=== PATIENT | male | born 1965 | race Caucasian/White ===

== ENCOUNTER → 2023-07-11 06:28 | Day surgery (SDC) | payer OTHER, SELFPAY | LOC: GI 06:28 | PROVIDERS: ATTENDING PHYSICIAN Internal Medicine | DX: Z12.11 Encounter for screening for malignant neoplasm of colon (principal); D12.0 Benign neoplasm of cecum; K63.5 Polyp of colon; K57.30 Diverticulosis of large intestine without perforation or abscess without bleeding; K64.8 Other hemorrhoids; K64.4 Residual hemorrhoidal skin tags; Z86.010 Personal history of colon polyps | CPT/HCPCS: 45385; 45380; 88305 ==

== ENCOUNTER 2023-08-09 07:48 | Emergency (ER) | payer OTHER, SELFPAY ==
[2023-08-09 07:50] VITALS: BP 153/87
--- NOTE | 2023-08-09 08:11 | ED.GENMED ---
History of Present Illness
General
Chief Complaint: Rectal Bleeding
Source: patient and spouse
Exam Limitations: none
Time Seen by Provider: 08/09/23 07:54
Nursing documentation reviewed up to this point in time: agreed with
Travel History
Have you had any contact with someone who has COVID-19?: No
Do you have any symptoms of coronavirus? Fever > 100 degrees, chills, cough, shortness of breath, sore throat, loss of taste or smell, muscle aches, or headache?: No
History of Present Illness
History of Present Illness:
58-year-old male past medical history of diverticulitis and hypertension presenting to the emergency department today with concerns of bright red blood in his stool since last night and an episode this morning as well. Claims he also has had brown
stool. Has had lower abdominal pain over the past week as well. Does have a history of diverticulitis which felt somewhat similar. Denies any nausea vomiting or fevers.
Past History
Past History
ED Past Medical History: None
ED Past Surgical History: None
Social History
Tobacco: Non-smoker
Alcohol: Occasional
Personal:
Living: with family
Employment: Employed (self empoyeed)
Review of Systems
Review of Systems
Allergies reviewed?: Yes
All Other Systems: ROS reviewed and negative except as documented in HPI and ROS
Phy Exam
Physical Exam
Physical Exam:
GENERAL: Alert , in no apparent distress
EYE: pupils equal and reactive
NECK: Supple, no significant adenopathy.
ENT: o/p clr, mmm.
CARDIAC: Regular rate and rhythm .
LUNGS: Clear breath sounds bilaterally, no acute respiratory distress, no wheezes/rales/rhonchi
ABDOMEN: No obvious hemorrhoids
tenderness palpation to the lower abdomen maximal to the left lower quadrant. Rectal examination with light brown stool guaiac negative.
NEUROLOGICAL: Alert and oriented, no focal neuro deficits
SKIN: Warm and dry, skin intact.
MUSCULOSKELETAL: No edema, well perfused.
PSYCH: Normal and appropriate interaction.
Course
Orders/Labs/Results
Orders:
Orders
08/09/23 07:54
Iohexol [Omnipaque] See Protocol PO NOW STA
08/09/23 08:03
CT Abd/Pel (IV only)-DH only Urgent
Comment:
Reason For Exam: llq pain
0.9% Sodium Chloride 1000 ml [Nss] 1,000 ml IV BOLUS
Ketorolac [Toradol] 15 mg IV NOW STA
08/09/23 08:32
Complete Blood Count/With Diff Urgent
Comprehensive Metabolic Panel Urgent
08/09/23 10:00
Urinalysis Urgent
Date Specimen was Collected: 08/09/23
Time Specimen was Collected: 09:59
Abnormal Lab Results
08/09/23 08/09/23
08:32 10:00
WBC 4.3 L 10^3/uL
(4.8-10.8)
RBC 4.44 L 10^6/uL
(4.70-6.10)
Hgb 12.9 L g/dL
(13.0-18.0)
Hct 38.1 L %
(39.0-52.0)
Absolute Lymphs (auto) 0.7 L 10^3/uL
(1.2-3.4)
Lymphocytes % 15.5 L %
(20.5-51.1)
Monocytes % 13.6 H %
(1.7-9.3)
Sodium 134 L mmol/L
(135-145)
Creatinine 0.6 L mg/dL
(0.7-1.3)
Urine Ketones 3+ A
(Negative)
08/09/23 08:32
08/09/23 08:32
Vital Signs
Initial and Last Documented VS:
Initial Vital Signs
Temp Pulse Resp BP Pulse Ox
97.9 F 83 18 153/87 96
08/09/23 07:50 08/09/23 07:50 08/09/23 07:50 08/09/23 07:50 08/09/23 07:50
Last Documented Vital Signs
Temp Pulse Resp BP Pulse Ox
97.9 F 83 18 153/87 97
08/09/23 07:50 08/09/23 07:50 08/09/23 07:50 08/09/23 07:50 08/09/23 09:39
MDM/Problems Addressed
MDM/Problems Addressed:
58-year-old male presenting to the emergency department today with concerns of lower abdominal pain over the past week mainly to the left lower quadrant now with red blood in his stool last night as well as this morning. Here vital signs are normal
patient no distress stools brown guaiac negative. Mild pain to the lower abdomen maximal to the left lower quadrant. Patient found to have colitis without signs of complication. No significant white count hemoglobin 12.9 no signs of bleeding
considering guaiac negative and brown stool. No blood in his urine. Patient had already started Augmentin yesterday advised for outpatient care and close GI follow-up return precautions given.
*Critical Care Note
Total Time (30-74mins, 75-104mins- exclusive of procedures): Not Applicable
ED Attending Note
-
Portions of this chart may have been created with voice recognition software.� Occasional wrong word or��sound alike� substitutions may have occurred due to the inherent limitations of voice recognition software.
Discharge Plan
Departure
Patient Disposition: Home (Routine Discharge)
Date of Disposition: 08/09/23
Time of Disposition: 11:03
Patient with high blood pressure during this ER visit?: No
Condition: Good
Covid-19: Not Applicable
Discharge Problem:
Colitis
Instructions: Colitis (DC)
Prescriptions:
No Action
No Meds [No Current Medications]
0
oseltamivir [Tamiflu] 75 MG capsule
75 mg PO BID Qty: 10 0RF
cephalexin 500 mg capsule
500 mg PO QID Qty: 28 0RF
Referrals:
Tobias Sears MD [Family Provider] -
Ceci Garvin, DO [Active] - Follow up in 10 days
Activity Restrictions/Additional Instructions:
You came to the emergency department today with concerns of abdominal discomfort and blood in your stool. Here your reassuring assessment but did have colitis on your CT scan. Please continue taking Augmentin and follow-up closely with GI. Return
to the emergency department immediately for any worsening, new or concerning symptoms.
Interventions
Interventions:
*Risk Screen - Suicide Last Done: 08/09/23 07:50
*General Assessment Last Done: 08/09/23 07:50
*Neglect/Abuse Screening Last Done: 08/09/23 07:50
*ED COVID-19 Vaccine History Last Done: 08/09/23 07:50
YQ-Hjkegh-Woptuecdja Assessment Last Done: 08/09/23 08:29
ED- Cardiac Assessment Last Done: 08/09/23 09:41
ED- Pulmonary Assessment Last Done: 08/09/23 09:39
Discharge Date and Time
Print Language: [place]
[2023-08-09 08:28] VITALS: BMI 27.0
[2023-08-09] MEDS: NSS 1000 IV (08:33)
[2023-08-09] MEDS: TORADOL 15 MG IV (08:34)
[2023-08-09 08:42] LABS: % Basophils 0.7 % (0-2); % Eosinophils 3.1 % (0-6); % Immature Granulocytes 0.2 % (0-0.5); % Lymphocytes 15.5 % (20.5-51.1); % Monocytes 13.6 % (1.7-9.3); % Neutrophils 66.9 % (42.2-75.2); Absolute Eosinophils 0.1 10^3/uL (0-0.7); Absolute Lymphocytes 0.7 10^3/uL (1.2-3.4); Absolute Monocytes 0.6 10^3/uL (0.1-0.6); Absolute Neutrophils 2.9 10^3/uL (1.4-6.5); Hematocrit 38.1 % (39.0-52.0); Hemoglobin 12.9 g/dL (13.0-18.0); Mean Corp Hgb Conc. 33.9 g/dL (33.0-37.0); Mean Corpuscular Hgb 29.1 pg (27.0-31.0); Mean Corpuscular Volume 85.8 fL (80.0-94.0); Mean Platelet Volume 10.2 fL (7.4-10.4); Nucleated Red Blood Cells % 0 % (-); Platelet Count 203 10^3/uL (130-400); Red Blood Cell Count 4.44 10^6/uL (4.70-6.10); Red Cell Dist. Width 12.1 % (11.5-14.5); White Blood Cell Count 4.3 10^3/uL (4.8-10.8)
[2023-08-09 08:56] LABS: ALT (SGPT) 20 U/L (0-50); AST (SGOT) 24 U/L (17-59); Alkaline Phosphatase 53 U/L (38-126); Blood Urea Nitrogen 9 mg/dl (9-20); Carbon Dioxide 22 mmol/L (22-30); Chloride 102 mmol/L (98-107); Estimated Creatinine Clearance > 125 ml/min; Glucose 93 mg/dl (70-99); Potassium 3.7 mmol/L (3.5-5.1); Sodium 134 mmol/L (135-145); Total Bilirubin 0.9 mg/dl (0.2-1.3); Total Protein 6.5 g/dl (6.3-8.2); eGFR > 60.00
[2023-08-09 10:08] LABS: Urine Albumin Negative (Neg - Trace); Urine Bilirubin Negative (Negative); Urine Character Clear (Clear); Urine Color Yellow; Urine Glucose Negative (Negative); Urine Ketone 3+ (Negative); Urine Leukocyte Negative (Negative); Urine Nitrite Negative (Negative); Urine Occult Blood Negative (Negative); Urine Urobilinogen Negative (Neg - 1+)
[2023-08-09 11:12] VITALS: BP 117/74
== END 2023-08-09 11:13 | disposition home or self-care (01) ==
LOC: EMR 07:48
PROVIDERS: Physician Assistant; EMERGENCY PHYSICIAN Emergency Medicine; FAMILY PHYSICIAN Family Medicine
DX: K52.9 Noninfective gastroenteritis and colitis, unspecified (principal); I10 Essential (primary) hypertension
CPT/HCPCS: 99285; 96374; 96361; 74177; 80053; 81003; 85025; Q9967

== ENCOUNTER → 2025-03-03 13:26 | Outpatient (REF) | payer OTHER, SELFPAY | LOC: RAD 13:26 | PROVIDERS: ATTENDING PHYSICIAN Family Medicine | DX: R20.2 Paresthesia of skin (principal); R51.9 Headache, unspecified | CPT/HCPCS: 70450 ==